=== PATIENT | female | born 1950 | race African-American/Black ===

== ENCOUNTER 2021-03-19 18:53 | Emergency (ER) | payer OTHER, MEDICARE, SELFPAY ==
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
[2021-03-19 19:30] VITALS: BP 178/68; PULSE 77; RESP 18; TEMP 36.6; O2SAT 96
[2021-03-19 21:30] VITALS: BP 122/76; PULSE 88; RESP 18; TEMP 36.8; O2SAT 99
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
[2021-03-19 22:52] VITALS: BP 132/78; PULSE 88; RESP 18; TEMP 36.8; O2SAT 97
== END 2021-03-19 22:45 | disposition home or self-care (01) ==
PROVIDERS: Emergency Provider Family Medicine; PCP Family Medicine
DX: S46.912A Strain of unspecified muscle, fascia and tendon at shoulder and upper arm level, left arm, initial encounter (principal); S00.83XA Contusion of other part of head, initial encounter; V49.50XA Passenger injured in collision with unspecified motor vehicles in traffic accident, initial encounter
CPT/HCPCS: 70450; 70486; 72070; 72125; 73030; 99284